=== PATIENT | female | born 1975 | race Hispanic/Latino ===

== ENCOUNTER 2017-04-10 19:24 | Emergency (ER) | payer MEDICAID ==
[2017-04-10 19:25] VITALS: BMI 26.6
[2017-04-10 19:37] VITALS: BP 105/70; PULSE 75; RESP 16; TEMP 98.7; O2SAT 96
--- NOTE | 2017-04-10 19:47 | ED PDOC ---
Arrival/HPI - General Chief Complaint: Lower Extremity Problem/Injury Time Seen by Provider: 04/10/17 19:38 - History of Present Illness Narrative History of Present Illness (Text): 04/10/17 19:44 41yo female with R. heel pain, started earlier today. Denies any trauma or injury. Better with rest, worst with ambulation. No calf, knee, or thigh pain. No other complaints. Past Medical History - Provider Review Nursing Documentation Reviewed: Yes - Travel History Have you recently traveled outside [place] w/in the past 3 mons?: No - Past Medical History Past Medical History: No Previous - Psychiatric Hx Psychophysiologic Disorder: No Hx Depression: No Hx Emotional Abuse: No Hx Physical Abuse: No Hx Substance Use: No - Surgical History Hx Appendectomy: Yes Hx Tubal Ligation: Yes - Suicidal Assessment Feels Threatened In Home Enviroment: No Family/Social History Family/Social History: No Known Family HX Smoking Status: Never Smoked Hx Alcohol Use: No Hx Substance Use: No Allergies/Home Meds Allergies/Adverse Reactions: Allergies No Known Allergies Allergy (Verified 04/10/17 19:31) Review of Systems - Physician Review All systems were reviewed & negative as marked: Yes - Review of Systems Respiratory: absent: SOB, Cough Cardiovascular: absent: Chest Pain, Palpitations, Orthopnea Gastrointestinal: absent: Abdominal Pain, Nausea, Vomiting Musculoskeletal: Other (foot pain) Physical Exam Vital Signs Reviewed: Yes Vital Signs Temp Pulse Resp BP Pulse Ox 04/10/17 19:40 98.7 F 75 16 105/70 96 04/10/17 19:32 98.7 F 75 16 105/70 96 Temperature: Afebrile Blood Pressure: Normal Pulse: Regular Respiratory Rate: Normal Appearance: Positive for: Well-Appearing Pain Distress: None Mental Status: Positive for: Alert and Oriented X 3 - Systems Exam Lower Extremity: Present: NORMAL PULSES, Normal ROM, Other (L. thigh, knee, ankle unremarkable. Distal pulses intact. no pain or tenderness along the achilles tendon. Tenderness to palpation at the heel. Full active and passive ROM. ). No: Edema, CALF TENDERNESS, Cyanosis, Esdras's Sign, Swelling, Erythema Medical Decision Making ED Course and Treatment: 04/10/17 19:53 41yo female with R. thigh, knee, ankle unremarkable. Distal pulses intact. no pain or tenderness along the achilles tendon. Tenderness to palpation at the heel. Full active and passive ROM. Differential includes but not limited to: plantar fasciitis, calcific tendonitis pain meds and xrays ordered 04/10/17 21:36 pt's foot xray shows no fx's or dislocations. possible bone spur. interpreted by me had an extensive d/w pt that although xrays are negative for any acute bony abnormality, it is still very important to fu with pmd and ortho specialist for further w/u and testing such as MRI to r/o any ligamentous/tendenous/meniscal injury. Pt verbalized full understanding of above discussion. pt ambulates in the ER with full weight bearing without difficulty Pt states she understands to return to the ER right away for new or worsening symptoms or for inability to f/u with PMD or specialist as instructed. Patient states that she fully agrees with and understands discharge instructions. States that she agrees with the plan and disposition. Verbalized and repeated discharge instructions and plan. I have given the patient opportunity to ask any additional questions. - RAD Interpretation Radiology Orders: 04/10/17 19:43 FOOT RIGHT 3 VIEWS ROUTINE [RAD] Stat - Medication Orders Current Medication Orders: Discontinued Medications Ketorolac Tromethamine (Toradol) 15 mg IM STAT STA Stop: 04/10/17 19:47 Last Admin: 04/10/17 21:23 Dose: 15 mg Disposition/Present on Arrival - Present on Arrival Any Indicators Present on Arrival: No History of DVT/PE: No History of Uncontrolled Diabetes: No Urinary Catheter: No History of Decub. Ulcer: No History Surgical Site Infection Following: None - Disposition Have Diagnosis and Disposition been Completed?: Yes Diagnosis: Foot pain Disposition: HOME/ ROUTINE Disposition Time: 21:38 Patient Plan: Discharge Condition: GOOD Discharge Instructions (ExitCare): Plantar Fasciitis (ED), Heel Spur (ED) Additional Instructions: PLEASE RETURN TO THE EMERGENCY DEPARTMENT FOR NEW OR WORSENING SYMPTOMS. RETURN RIGHT AWAY IF YOU CANNOT FOLLOW UP WITH YOUR PRIMARY CARE DOCTOR, CLINIC, OR SPECIALIST IN 1-2 DAYS. Prescriptions: Ibuprofen [Motrin] 600 mg PO Q8 PRN #12 tab PRN Reason: Pain, Moderate (4-7) Referrals: Lopez Martin MD [Primary Care Provider] - Follow up with primary Lefty Ahn DPM [Doctor Podiatric Medicine] - Follow up with primary Michelle Martinez DPM [Staff Provider] - Follow up with primary Forms: WORK NOTE
--- NOTE | 2017-04-11 10:43 | RAD ---
PROCEDURE: Right Foot Radiographs. HISTORY: pain COMPARISON: None. FINDINGS: BONES: Normal. No fracture. JOINTS: Normal. SOFT TISSUES: Normal. OTHER FINDINGS: None. IMPRESSION: Normal right foot radiographs.
== END 2017-04-10 22:04 | disposition home or self-care (01) ==
LOC: ED 19:24
DX: M79.671 Pain in right foot (principal)
CPT/HCPCS: 73630; 96372; 99283; J1885

== ENCOUNTER 2017-05-05 21:32 | Emergency (ER) | payer OTHER, MEDICAID ==
[2017-05-05 21:33] VITALS: BMI 26.6
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
[2017-05-06 01:52] VITALS: BP 101/78; PULSE 66; RESP 18; TEMP 98.3; O2SAT 99
--- NOTE | 2017-05-06 08:15 | RAD ---
PROCEDURE: Radiographs of the Left Shoulder HISTORY: injury COMPARISON: No prior. FINDINGS: BONES: Normal. No fracture. JOINTS: Normal. Glenohumeral and acromioclavicular joints preserved. No osteoarthritis. SOFT TISSUES: Normal. OTHER FINDINGS: None. IMPRESSION: Normal radiographs of the left shoulder.
== END 2017-05-06 01:59 | disposition home or self-care (01) ==
LOC: ED 21:32
DX: S43.402A Unspecified sprain of left shoulder joint, initial encounter (principal); S00.83XA Contusion of other part of head, initial encounter; V49.59XA Passenger injured in collision with other motor vehicles in traffic accident, initial encounter; Y92.488 Other paved roadways as the place of occurrence of the external cause
CPT/HCPCS: 73030; 99284; L3650